=== PATIENT | male | born 1950 | race Caucasian/White ===

== ENCOUNTER 2016-05-03 10:54 | Observation (INO) | payer SELFPAY ==
[~2016-05-03] VITALS: Ht 193 cm; Wt 96.0 kg
[2016-05-03] VITALS (8 sets, daily range): BP systolic 103–134; BP diastolic 60–81; PULSE 60–84; RESP 17–18; TEMP 97.8–98; O2SAT 98–100
--- NOTE | 2016-05-03 11:08 | PD ---
HPI Chief Complaint: near-syncope Time Seen by Provider: 11:04 Travel History International Travel<30 days: No Contact w/Intl Traveler<30days: No Traveled to known affect area: No History of Present Illness HPI 65-year-old male with history of cardiac arrest and catheterization, diagnosed with MA and stented 2 weeks ago, released from the hospital 4 days ago, presents to the ER today brought in by EMS because he states that he had a sudden onset episode of lightheadedness and near syncope this morning prior to arrival. He denies any chest pains, shortness of breath, palpitations, or any other symptoms. He states that he was sitting at the computer when the episode started and he was seeing spots in his vision and was lightheaded. He got up and tried to walk to the living room but had to sit down because he felt like he was going to pass out. He did not lose consciousness. He states that his took a blood pressure at that time and it was 60 systolic. By time EMS got there, it was 80 systolic. He reports no nausea, vomiting, fevers, diarrhea , abdominal pain, chest pains, or any other symptoms currently. Modifying Factors: None Associated Signs & Symptoms: Near syncope Risk Factors: Recent cardiac event, MA PFSH Past Medical History Blood Disorders: No Cardiovascular Problems: No Endocrine: No Genitourinary: Yes Immune Disorder: No Musculoskeletal: Yes Neurologic: No Respiratory: No Social History Alcohol Use: No Tobacco Use: No Substance Use: No Allergies-Medications (Allergen,Severity, Reaction): Coded Allergies: No Known Allergies (Verified Allergy, Unknown, 04/23/05) Reported Meds & Prescriptions Reported Meds & Active Scripts Active Reported Levothyroxine (Levothyroxine Sodium) 125 Mcg Tab 125 Mcg PO DAILY Spironolactone 25 Mg Tab 25 Mg PO DAILY Pravastatin 20 Mg Tab 40 Mg PO HS Effient (Prasugrel) 10 Mg Tab 10 Mg PO DAILY Losartan (Losartan Potassium) 25 Mg Tab 25 Mg PO DAILY Coreg (Carvedilol) 3.125 Mg Tab 6.25 Mg PO Q12HR Aspirin Adult Low Strength (Aspirin) 81 Mg Tabdr 81 Mg PO DAILY Amiodarone (Amiodarone HCl) 200 Mg Tab 200 Mg PO DAILY Ventolin Hfa 18 GM Inh (Albuterol Sulfate) 90 Mcg/Act Aer 2 Puff INH Q4H PRN Review of Systems Except as stated in HPI: all other systems reviewed are Neg Physical Exam Narrative GENERAL: Well-nourished, well-developed pleasant elderly white male patient in no acute distress. SKIN: Warm and dry. HEAD: Normocephalic. EYES: No scleral icterus. No injection or drainage. NECK: Supple, trachea midline. CARDIOVASCULAR: Regular rate and rhythm without murmurs, gallops, or rubs. Pulses are present and equal bilaterally. RESPIRATORY: Breath sounds equal bilaterally. No accessory muscle use. GASTROINTESTINAL: Abdomen soft, non-tender, nondistended. MUSCULOSKELETAL: No cyanosis, or edema. BACK: Nontender without obvious deformity. No CVA tenderness. NEUROLOGICAL: Awake and alert. Cranial nerves II through XII intact. Motor and sensory grossly within normal limits. Five out of 5 muscle strength in all muscle groups. Normal speech. Data Data Last Documented VS Vital Signs Date Time Temp Pulse Resp B/P Pulse Ox O2 Delivery O2 Flow Rate FiO2 05/03/16 12:20 60 17 104/66 98 Room Air 05/03/16 11:01 97.8 Orders Electrocardiogram (05/03/16 11:04) Complete Blood Count With Diff (05/03/16 11:04) Comprehensive Metabolic Panel (05/03/16 11:04) Magnesium (Mg) (05/03/16 11:04) Ckmb (Isoenzyme) Profile (05/03/16 11:04) Troponin I (05/03/16 11:04) Act Partial Throm Time (Ptt) (05/03/16 11:04) Prothrombin Time / Inr (Pt) (05/03/16 11:04) Urinalysis - C+S If Indicated (05/03/16 11:04) Chest, Single Ap (05/03/16 11:04) Ecg Monitoring (05/03/16 11:04) Iv Access Insert/Monitor (05/03/16 11:04) Oximetry (05/03/16 11:04) Sodium Chloride 0.9% Flush (Ns Flush) (05/03/16 11:15) Sodium Chlorid 0.9% 500 Ml Inj (Ns 500 M (05/03/16 11:15) Labs Laboratory Tests Test 05/03/16 11:20 White Blood Count 6.3 TH/MM3 Red Blood Count 3.83 MIL/MM3 Hemoglobin 11.9 GM/DL Hematocrit 34.8 % Mean Corpuscular Volume 90.9 FL Mean Corpuscular Hemoglobin 31.0 PG Mean Corpuscular Hemoglobin 34.1 % Concent Red Cell Distribution Width 13.2 % Platelet Count 345 TH/MM3 Mean Platelet Volume 8.8 FL Neutrophils (%) (Auto) 69.5 % Lymphocytes (%) (Auto) 15.1 % Monocytes (%) (Auto) 11.0 % Eosinophils (%) (Auto) 3.8 % Basophils (%) (Auto) 0.6 % Neutrophils # (Auto) 4.4 TH/MM3 Lymphocytes # (Auto) 1.0 TH/MM3 Monocytes # (Auto) 0.7 TH/MM3 Eosinophils # (Auto) 0.2 TH/MM3 Basophils # (Auto) 0.0 TH/MM3 CBC Comment DIFF FINAL Differential Comment Prothrombin Time 11.6 SEC Prothromb Time International 1.0 RATIO Ratio Activated Partial 27.5 SEC Thromboplast Time Urine Color YELLOW Urine Turbidity CLEAR Urine pH 7.0 Urine Specific [place] 1.010 Urine Protein NEG mg/dL Urine Glucose (UA) NEG mg/dL Urine Ketones NEG mg/dL Urine Occult Blood NEG Urine Nitrite NEG Urine Bilirubin NEG Urine Urobilinogen LESS THAN 2.0 MG/DL Urine Leukocyte Esterase NEG Urine RBC 1 /hpf Urine WBC LESS THAN 1 /hpf Urine Hyaline Casts 1 /lpf Microscopic Urinalysis Comment CULT NOT INDICATED Sodium Level 138 MEQ/L Potassium Level 4.8 MEQ/L Chloride Level 106 MEQ/L Carbon Dioxide Level 24.5 MEQ/L Anion Gap 8 MEQ/L Blood Urea Nitrogen 18 MG/DL Creatinine 1.43 MG/DL Estimat Glomerular Filtration 50 ML/MIN Rate Random Glucose 81 MG/DL Calcium Level 8.2 MG/DL Magnesium Level 2.3 MG/DL Total Bilirubin 0.6 MG/DL Aspartate Amino Transf 28 U/L (AST/SGOT) Alanine Aminotransferase 51 U/L (ALT/SGPT) Alkaline Phosphatase 95 U/L Total Creatine Kinase 58 U/L Troponin I 0.09 NG/ML Total Protein 6.7 GM/DL Albumin 3.4 GM/DL [facility] Medical Decision Making Medical Screen Exam Complete: Yes Emergency Medical Condition: Yes Medical Record Reviewed: Yes Interpretation(s) EKG shows sinus bradycardia at a rate of 57 bpm. T-wave inversions in the anterolateral leads 1, aVL, V5 and V6. No ST elevations. Laboratory Tests Test 05/03/16 11:20 Red Blood Count 3.83 MIL/MM3 (4.50-5.90) Hemoglobin 11.9 GM/DL (13.0-17.0) Hematocrit 34.8 % (39.0-51.0) Monocytes (%) (Auto) 11.0 % (0.0-8.0) Creatinine 1.43 MG/DL (0.60-1.30) Estimat Glomerular Filtration 50 ML/MIN (>89) Rate Calcium Level 8.2 MG/DL (8.5-10.1) Troponin I 0.09 NG/ML (0.02-0.05) Differential Diagnosis Near syncopedysrhythmias versus dehydration versus metabolic issues Narrative Course Vital signs are stable in the ER. His EKG did not show any signs of dysrhythmias currently. He has T-wave inversions in 1, aVL, V5 and V6 which is of uncertain significance. Patient is not having chest pains. Troponins are 0.09. At this point, my plan would be to admit the patient for further evaluation. No significant lateral light issues identified. Case is discussed with Dr. Greene for admission. Diagnosis Primary Impression: Near syncope Additional Impression: Elevated troponin Admitting Information Admitting Physician Requests: Admit Vane Nick MD May 03, 2016 11:08
[2016-05-03] MEDS ORDERED: SODIUM CHLORID 0.9% 500 ML INJ 500 ML IV ONE (11:15)
[2016-05-03] MEDS ORDERED: SODIUM CHLORIDE 0.9% FLUSH 5 ML FLUSH IVF PRN (11:15)
[2016-05-03 11:41] LABS: AUTOMATED NEUTROPHIL # 4.4 TH/MM3 (1.8-7.7); BASOPHIL % 0.6 % (0.0-2.0); EOSINOPHIL # 0.2 TH/MM3 (0-0.4); EOSINOPHIL % 3.8 % (0.0-4.0); HEMATOCRIT 34.8 % (39.0-51.0); HEMO FLAGS DIFF FINAL; LYMPH % 15.1 % (9.0-44.0); MEAN CELL VOLUME 90.9 FL (80.0-100.0); MEAN CORPUSCULAR HGB CONC 34.1 % (32.0-36.0); NEUT % 69.5 % (16.0-70.0); PLATELET COUNT 345 TH/MM3 (150-450); RED BLOOD COUNT 3.83 MIL/MM3 (4.50-5.90); RED CELL DISTRIBUTION WIDTH 13.2 % (11.6-17.2); WHITE BLOOD COUNT 6.3 TH/MM3 (4.0-11.0)
[2016-05-03 11:49] LABS: APTT (PATIENT) 27.5 SEC (24.3-30.1); PROTHROMBIN TIME - PATIENT 11.6 SEC (9.8-11.6)
[2016-05-03] MEDS ORDERED: LEVO125T4 PO (12:04)
[2016-05-03] MEDS ORDERED: PRAS10TA PO (12:04)
[2016-05-03] MEDS ORDERED: CARV3.125 PO ×2 (12:04→17:15)
[2016-05-03] MEDS ORDERED: VENTAER INH (12:04)
[2016-05-03] MEDS ORDERED: PRAV20TA2 PO (12:04)
[2016-05-03] MEDS ORDERED: LOSA25TA PO (12:04)
[2016-05-03] MEDS ORDERED: SPIR25TA PO (12:04)
[2016-05-03] MEDS ORDERED: ASPI1TAB91 PO (12:04)
[2016-05-03] MEDS ORDERED: AMIO200T PO (12:04)
[2016-05-03 12:05] LABS: ALT (GPT) 51 U/L (12-78); ANION GAP 8 MEQ/L (5-15); AST (GOT) 28 U/L (15-37); BICARBONATE 24.5 MEQ/L (21.0-32.0); BLOOD UREA NITROGEN 18 MG/DL (7-18); BLOOD, URINE NEG (NEG); CHLORIDE 106 MEQ/L (98-107); COMMENT (UR) CULT NOT INDICATED; CULTURE IF INDICATED CULT NOT INDICATED; GLOMERULAR FILTRATION RATE 50 ML/MIN (>89); GLUCOSE,URINE NEG (NEG); HYALINE CAST, URINE 1 /lpf (RARE); KETONE, URINE NEG (NEG); MAGNESIUM 2.3 MG/DL (1.5-2.5); NITRITE,URINE NEG (NEG); POTASSIUM 4.8 MEQ/L (3.5-5.1); SODIUM (NA) 138 MEQ/L (136-145); URINE COLOR YELLOW (YELLW/STRAW)
[2016-05-03 12:08] LABS: ALKALINE PHOSPHATASE 95 U/L (45-117); TOTAL BILIRUBIN ADULT 0.6 MG/DL (0.2-1.0)
[2016-05-03 12:19] LABS: CREATINE KINASE 58 U/L (39-308)
--- NOTE | 2016-05-03 12:47 | RADRPT ---
EXAM DATE/TIME: 05/03/2016 11:44 [facility] COMPARISON: No previous studies available for comparison. INDICATIONS: Low blood pressure, near syncope, short of breath, chest discomfort from recent chest compressions MEDICAL HISTORY: Cardiovascular disease. Myocardial infarction. Cardiac arrest SURGICAL HISTORY: Coronary artery stent. ENCOUNTER: Initial ACUITY: 1 day PAIN SCORE: 4/10 LOCATION: Bilateral chest FINDINGS: Small bilateral pleural effusions are noted. The heart is top normal in size. The pulmonary vascula r pattern is normal. The lungs are clear. CONCLUSION: 1. Small bilateral pleural effusions. 2. No acute focal pulmonary infiltrate or pulmonary vascular congestion. Ellis Victoria MD on May 03, 2016 at 12:42 Board Certified Radiologist. This report was verified electronically.
[2016-05-03] MEDS ORDERED: SODIUM CHLOR 0.45% 1000 ML INJ 1,000 ML IV SCH (12:54)
[2016-05-03] MEDS ORDERED: ONDANSETRON HCL 4 MG/2 ML VIAL IVP PRN (13:00)
[2016-05-03] MEDS ORDERED: SODIUM CHLORIDE 0.9% FLUSH 5 ML FLUSH FLUSH PRN (13:00)
[2016-05-03] MEDS ORDERED: NALOXONE HCL 0.4 MG/ML AMP IV PRN (13:00)
--- NOTE | 2016-05-03 17:16 | HHI.DCPOC ---
Discharge Care Plan Diagnosis: (1) Near syncope (2) Hypotension Goals to Promote Your Health * To prevent worsening of your condition and complications * To maintain your health at the optimal level Directions to Meet Your Goals Take your medications as prescribed Follow your dietary instruction Follow activity as directed Keep your appointments as scheduled Take your immunizations and boosters as scheduled If your symptoms worsen call your PCP, if no PCP go to Urgent Care Center or Emergency Room Smoking is Dangerous to Your Health. Avoid second hand smoke Call the 24-hour hour crisis hotline for domestic abuse at Palomo Greene MD May 03, 2016 17:16
--- NOTE | 2016-05-03 17:40 | HHI.HP ---
[facility] Service [facility] ([place], [place])ists Primary Care Physician Yeyo Martinez MD Admission Diagnosis near-syncope/elevated troponin Diagnoses: Chief Complaint: Near syncope. hypotension Travel History International Travel<30 Days: No Contact w/Intl Traveler <30 Da: No Traveled to Known Affected Are: No History of Present Illness 65-year-old male with a medical history significant for recent NH status post circumflex stent placement. The patient was discharged from the hospital 4 days ago. He reports that he has been doing okay at home except for some weakness. This morning as he was sitting on his computer he started seeing spots and became lightheaded. He got up to walk and fell down to his knees. He denies loss of consciousness. His took his blood pressure in the systolic was noted to be in the 60s. When EMS arrived, his systolic blood pressure was 80. He denies any diarrhea or episodes of nausea or vomiting. However he admits that yesterday he did not drink much fluid because he has been urinating a lot from the medications he received from the hospital. On arrival here, his blood pressure was noted to be 114/68. His troponin were mildly elevated. Hospitalist service was consulted to admit the patient for observation. Currently the patient reports that he is feeling much better. He denies any lightheadedness. No chest pain or shortness of breath. He wants to go home. Review of Systems Constitutional: COMPLAINS OF: Dizziness, DENIES: Fever, Chills Eyes: COMPLAINS OF: Blurred vision Ears, nose, mouth, throat: DENIES: Oral lesions, Epistaxis Cardiovascular: DENIES: Chest pain, Palpitations, Lower Extremity Edema Gastrointestinal: DENIES: Nausea, Vomiting Genitourinary: DENIES: Dysuria Musculoskeletal: COMPLAINS OF: Joint pain Neurologic: DENIES: Headache, Localized weakness Past Family Social History Past Medical History Hypothyroidism Coronary artery disease status post NH, stent placement in the circumflex. Past Surgical History Left knee arthroscopic surgery Reported Medications Reported Meds & Active Scripts Active Coreg (Carvedilol) 3.125 Mg Tab 3.125 Mg PO Q12HR Reported Levothyroxine (Levothyroxine Sodium) 125 Mcg Tab 125 Mcg PO DAILY Pravastatin 20 Mg Tab 40 Mg PO HS Effient (Prasugrel) 10 Mg Tab 10 Mg PO DAILY Aspirin Adult Low Strength (Aspirin) 81 Mg Tabdr 81 Mg PO DAILY Amiodarone (Amiodarone HCl) 200 Mg Tab 200 Mg PO DAILY Ventolin Hfa 18 GM Inh (Albuterol Sulfate) 90 Mcg/Act Aer 2 Puff INH Q4H PRN Allergies: Coded Allergies: No Known Allergies (Verified Allergy, Unknown, 04/23/05) Family History Father from lung cancer in his 50s. Social History Patient denies tobacco use. Admits to occasional alcohol. No illicit drug use. Physical Exam Vital Signs Vital Signs Date Time Temp Pulse Resp B/P Pulse Ox O2 Delivery O2 Flow Rate FiO2 05/03/16 17:25 97.8 76 17 120/71 99 05/03/16 15:54 98.0 66 18 103/60 99 Room Air 05/03/16 14:29 66 17 125/71 98 Room Air 05/03/16 13:10 59 18 118/69 62 17 122/71 70 18 104/72 05/03/16 12:59 84 18 134/81 99 Room Air 05/03/16 12:20 60 17 104/66 98 Room Air 05/03/16 11:07 18 100 Room Air 05/03/16 11:05 60 18 99 Room Air 05/03/16 11:01 97.8 60 18 114/68 100 Physical Exam GENERAL: This is a well-nourished, well-developed patient, in no apparent distress. SKIN: No rashes, ecchymoses or lesions. Cool and dry. HEAD: Atraumatic. Normocephalic. No temporal or scalp tenderness. EYES: Pupils equal round and reactive. Extraocular motions intact. No scleral icterus. No injection or drainage. ENT: Nose without bleeding, purulent drainage or septal hematoma. Throat without erythema, tonsillar hypertrophy or exudate. Uvula midline. Airway patent. NECK: Trachea midline. No JVD or lymphadenopathy. Supple, nontender, no meningeal signs. CARDIOVASCULAR: Regular rate and rhythm without murmurs, gallops, or rubs. RESPIRATORY: Clear to auscultation. Breath sounds equal bilaterally. No wheezes , rales, or rhonchi. GASTROINTESTINAL: Abdomen soft, non-tender, nondistended. No hepato-splenomegaly , or palpable masses. No guarding. MUSCULOSKELETAL: Extremities without clubbing, cyanosis, or edema. No joint tenderness, effusion, or edema noted. No calf tenderness. Negative Homans sign bilaterally. NEUROLOGICAL: Awake and alert. Cranial nerves II through XII intact. Motor and sensory grossly within normal limits. Five out of 5 muscle strength in all muscle groups. Normal speech. Laboratory Laboratory Tests Test 05/03/16 11:20 White Blood Count 6.3 Red Blood Count 3.83 Hemoglobin 11.9 Hematocrit 34.8 Mean Corpuscular Volume 90.9 Mean Corpuscular Hemoglobin 31.0 Mean Corpuscular Hemoglobin 34.1 Concent Red Cell Distribution Width 13.2 Platelet Count 345 Mean Platelet Volume 8.8 Neutrophils (%) (Auto) 69.5 Lymphocytes (%) (Auto) 15.1 Monocytes (%) (Auto) 11.0 Eosinophils (%) (Auto) 3.8 Basophils (%) (Auto) 0.6 Neutrophils # (Auto) 4.4 Lymphocytes # (Auto) 1.0 Monocytes # (Auto) 0.7 Eosinophils # (Auto) 0.2 Basophils # (Auto) 0.0 CBC Comment DIFF FINAL Differential Comment Prothrombin Time 11.6 Prothromb Time International 1.0 Ratio Activated Partial 27.5 Thromboplast Time Urine Color YELLOW Urine Turbidity CLEAR Urine pH 7.0 Urine Specific [place] 1.010 Urine Protein NEG Urine Glucose (UA) NEG Urine Ketones NEG Urine Occult Blood NEG Urine Nitrite NEG Urine Bilirubin NEG Urine Urobilinogen LESS THAN 2.0 Urine Leukocyte Esterase NEG Urine RBC 1 Urine WBC LESS THAN 1 Urine Hyaline Casts 1 Microscopic Urinalysis Comment CULT NOT INDICATED Sodium Level 138 Potassium Level 4.8 Chloride Level 106 Carbon Dioxide Level 24.5 Anion Gap 8 Blood Urea Nitrogen 18 Creatinine 1.43 Estimat Glomerular Filtration 50 Rate Random Glucose 81 Calcium Level 8.2 Magnesium Level 2.3 Total Bilirubin 0.6 Aspartate Amino Transf 28 (AST/SGOT) Alanine Aminotransferase 51 (ALT/SGPT) Alkaline Phosphatase 95 Total Creatine Kinase 58 Troponin I 0.09 Total Protein 6.7 Albumin 3.4 Result Diagram: 05/03/16 1120 05/03/16 1120 Imaging Last Impressions Chest X-Ray 05/03/16 1104 Signed Impressions: Service Date/Time: Tuesday, May 03, 2016 11:44 - CONCLUSION: 1. Small bilateral pleural effusions. 2. No acute focal pulmonary infiltrate or pulmonary vascular congestion. Ellis Victoria MD Assessment and Plan Problem List: (1) Hypotension ICD Code: I95.9 Status: Acute (2) Near syncope ICD Code: R55 Status: Acute (3) CAD (coronary artery disease) ICD Code: I25.10 Status: Acute Assessment and Plan 65-year-old male with: Hypotension and near syncope: I suspect this is related to antihypertensives. Patient did not have any history of hypertension prior to his recent hospitalization for NH. He is on losartan, Coreg, spironolactone, and amiodarone. - I discussed the case with the patient's field hand Dr. Monet. Since the patient's BP came up and his symptoms completely resolved, he can be discharged home to follow up outpatient. Losartan and spironolactone were discontinued. Coreg dose decreased to 3.125 mg twice a day. The patient is advised to check his blood pressure at home 2 to 3 times daily and keep a log to bring to his next appointment with his field hand. CAD: Patient with recent NH, status post stenting of the circumflex. Was discharged from the hospital 4 days ago. - Continue aspirin, Coreg. Case discussed with field hand, Mildly elevated troponin is expected given recent NH and stent placement. The patient is discharge home in stable condition Diet: Heart healthy Activity: Regular as tolerated Follow-up with field hand in 2-3 days Medications: Per med rec. Palomo Greene MD May 03, 2016 17:40
[2016-05-03] MEDS ORDERED: PRAVASTATIN SOD 40 MG TAB PO SCH (21:00)
[2016-05-03] MEDS ORDERED: SODIUM CHLORIDE 0.9% FLUSH 5 ML FLUSH FLUSH SCH (21:00)
[2016-05-04] MEDS ORDERED: LEVOTHYROXINE SODIUM 125 MCG TAB PO SCH (06:00)
[2016-05-04] MEDS ORDERED: PRASUGREL 10 MG TAB PO SCH (09:00)
[2016-05-04] MEDS ORDERED: SPIRONOLACTONE 25 MG TAB PO SCH (09:00)
[2016-05-04] MEDS ORDERED: ASPIRIN EC 81 MG TABEC PO SCH (09:00)
[2016-05-04] MEDS ORDERED: AMIODARONE 200 MG TAB PO SCH (09:00)
--- NOTE | 2016-05-04 23:10 | EKG ---
Date Performed: 05/03/2016 Time Performed: 11:18:31 PTAGE: 65 years EKG: SINUS BRADYCARDIA INCOMPLETE RIGHT BUNDLE BRANCH BLOCK ST DEVIATION AND MODERATE T-WAVE ABN ORMALITY, CONSIDER LATERAL ISCHEMIA ABNORMAL ECG PREVIOUS TRACING : 05/21/2005 11.31 Compared to the previous tracing, T wave changes laterally are new DOCTOR: Akash Aguilera Interpretating Date/Time 05/04/2016 23:08:52
== END 2016-05-03 17:46 | disposition home or self-care (01) ==
LOC: NEPC 10:54 → NEDH 12:57 → INTOOBSV 12:57
PROVIDERS: ADMIT Family Medicine; ATTEND Family Medicine
DX: R55 Syncope and collapse (principal); I95.9 Hypotension, unspecified; I21.3 ST elevation (STEMI) myocardial infarction of unspecified site; R77.8 Other specified abnormalities of plasma proteins; H53.8 Other visual disturbances; I25.10 Atherosclerotic heart disease of native coronary artery without angina pectoris; Z95.5 Presence of coronary angioplasty implant and graft; Z80.1 Family history of malignant neoplasm of trachea, bronchus and lung; Z79.899 Other long term (current) drug therapy
CPT/HCPCS: 71010; 80053; 81001; 82550; 83735; 84484; 85025; 85610; 85730; 93005; 96360; 99285; G0378; J7040